=== PATIENT | female | born 1975 | race Caucasian/White ===

== ENCOUNTER 2022-02-26 06:30 | Day surgery (SDC) | payer SELFPAY ==
[2022-02-25 13:00] VITALS: BMI 36.1
[2022-02-26] VITALS (9 sets, daily range): BP systolic 105–154; BP diastolic 79–104; PULSE 72–94; RESP 16–18; TEMP 36.4–36.9; O2SAT 95–100
[2022-02-26] MEDS: sodium chloride 0.9% 1,000 ML 30 ML IV (07:10)
[2022-02-26] MEDS: vancomycin 1,000 MG in sodium chloride 0.9% 250 ML 250 MG IV (07:20)
--- NOTE | 2022-02-26 07:50 | PM.HP ---
Providers/Chief Complaint Chief Complaint: Subcutaneous mass of back History of Present Illness Melissa Ren is a 46 year old female who presents for excision of subcutaneous mass of back Medications/Allergies Home Medications Medication Instructions Recorded Confirmed Last Taken Type levonorgestrel 20 mcg/24 hours (7 1 device intrauterine ONCE 01/13/22 02/26/22 02/26/22 History yrs) 52 mg intrauterine device (Mirena) Allergies Allergy/AdvReac Type Severity Reaction Status Date / Time nalbuphine [From Nubain] Allergy Unknown Verified 01/13/22 14:03 Penicillins Allergy Unknown Verified 01/13/22 14:03 PFSH Acute PFSH: Medical History Hypertension Surgical History Hx of section Hx of cholecystectomy Family History Father Diabetes Social History Smoking and tobacco status: current every day smoker Vitals/I&O/Wt Last Vital Signs Temp 97.6 F 02/26/22 06:40 Pulse 78 02/26/22 06:40 Resp 18 02/26/22 06:40 BP 154/100 02/26/22 06:40 Pulse Ox 98 02/26/22 06:40 O2 Del Method 02/26/22 06:49 Weight last 48 hrs Weight 185 lb A&P Assessment and plan (1) Subcutaneous mass of back: Status: Acute Plan Excision of subcu The risks and benefits were explained and documented Attestations Medical Necessity Statement*: Patient will be discharged home Coding Level of Care Code Acute Waistline Joiner Overlock for Giorgig Fwd Diagnoses Subcutaneous mass of back R22.2
[2022-02-26] MEDS: diphenhydrAMINE 50 mg/mL SDV 1mL 25 MG IVP (07:59)
--- NOTE | 2022-02-26 08:14 | ANES.PREANE2 ---
Pre-Anesthetic Assessment Height/Weight: Height 1.52 m Weight 83.915 kg Temp Pulse Resp BP Pulse Ox O2 Del Method 97.6 F 78 18 154/100 98 02/26/22 06:40 02/26/22 06:40 02/26/22 06:40 02/26/22 06:40 02/26/22 06:40 02/26/22 06:49 Preop Diagnosis: subcutaneous mass of back Operation Date: 02/26/22 08:00 Proposed Procedures p exision of subcutaneous back mass 25439,R22.2(Not Applicable) - Merlin Murillo DO Familial anesthetic complications: none Was Beta Cass taken within 24 hours: N/A Was Clonidine taken within 24 hours: N/A Last intake: Intake Last Liquid Date 02/25/22 Last Liquid Time 19:30 Last Solid Date 02/25/22 Last Solid Time 19:30 Social No alcohol and No tobacco Exam alert, oriented x 3, clear to auscultation bilaterally and regular rate & rhythm Airway Submandibular: within normal limits Cervical ROM: within normal limits Mallampati: Class II Dentition: full History/ROS No significant history except as noted Metabolic Morbid Obesity Anesthetic Plan ASA status: 2 Anesthesia: General Medications/Allergies Home Medications Medication Instructions Recorded Confirmed Last Taken Type levonorgestrel 20 mcg/24 hours (7 1 device intrauterine ONCE 01/13/22 02/26/22 02/26/22 History yrs) 52 mg intrauterine device (Mirena) Allergies Allergy/AdvReac Type Severity Reaction Status Date / Time nalbuphine [From Nubain] Allergy Unknown Verified 01/13/22 14:03 Penicillins Allergy Unknown Verified 01/13/22 14:03 Current Medications Generic Name Dose Route Start Last Admin Trade Name Freq PRN Reason Stop Dose Admin Sodium Chloride 1,000 mls @ 30 mls/hr 02/26/22 06:45 02/26/22 07:10 Sodium Chloride 0.9% IV 02/27/22 06:44 30 mls/hr .Q24H SYLVIA Administration PFSH Anesthesia Medical History Hypertension Surgical History Hx of section Hx of cholecystectomy Family History Father Diabetes Social History Smoking and tobacco status: current every day smoker Data Anesthesia Cardiac Studies: No Data to Display
--- NOTE | 2022-02-26 08:41 | PM.OP ---
Operative Report Date of procedure: February 26, 2022 Pre-op diagnosis: Preop Diagnosis subcutaneous mass of back Post-op diagnosis: same Procedure done: Excision of subcutaneous mass of back Specimens removed/disposition: Subcutaneous mass of back Surgeon: Dr. Merlin Murillo DO Anesthesia: General Estimated blood loss (mL): 5 Complications: None apparent Brief History: This is a very pleasant 46-year-old female with an enlarging subcutaneous mass of her back. She desires excision. Risks and benefits were explained and documented Procedure: The area was inspected prepped and draped in the usual sterile fashion. 2% lidocaine with epinephrine was used to anesthetize the area around the lesion which measured 11 centimeters in greatest diameter. A 15 blade scalpel then used to make an incision measuring 8 centimeters in length. Incision was carried down to subcutaneous tissue. A large, lobulated fatty mass measuring 11 cm in greatest diameter was identified. Bovie cautery was used to excise it from the alveolar tissue. The specimen was passed off. 3-0 Vicryl was used to approximate the dermis, and 2-0 Nylonl was use to close the skin in a simple interrupted and running fashion. Hemostasis was noted. Sterile dressing was applied. Patient tolerated the procedure well.
[2022-02-26] MEDS: ondansetron 2 mg/ML SDV 2 mL 4 MG IVP (09:50)
--- NOTE | 2022-02-26 13:57 | ANE.PACU2 ---
Inpatient post-anesthesia follow up: Airway intact: Yes Vital signs: Temperature 97.6 F Pulse Rate 72 Respiratory Rate 18 Blood Pressure 148/92 Pulse Oximetry 99 Oxygen Delivery Me thod Room Air Oxygen Flow Rate 6 Fraction of Inspir ed Oxygen Hydration adequate: Yes Nausea and vomiting: No Pain level: 1 Mental status: Baseline
== END 2022-02-26 09:52 | disposition home or self-care (01) ==
PROVIDERS: Visit Provider Surgery
PROC: (CPT 21931; principal; 2022-02-26 08:00)
DX: D17.1 Benign lipomatous neoplasm of skin and subcutaneous tissue of trunk (principal); Z88.0 Allergy status to penicillin; I10 Essential (primary) hypertension; F17.200 Nicotine dependence, unspecified, uncomplicated
CPT/HCPCS: 21931; 88307; J1100; J1200; J2250; J2405; J2704; J3010; J3370; J7030; J7050